=== PATIENT | male | born 1980 | race Caucasian/White ===

== ENCOUNTER 2018-03-10 16:39 | Emergency (ER) | payer OTHER ==
[~2018-03-10] VITALS: Ht 180.3 cm; Wt 122.5 kg
[2018-03-10 17:00] VITALS: BP 151/98
[2018-03-10] MEDS ORDERED: DIPHTH,PERTUSS(ACELL),TET TOX 0.5 ML DISP.SYRIN. VAX IM ONE (17:00)
[2018-03-10] MEDS ORDERED: HYDR-971 PO (17:03)
[2018-03-10] MEDS ORDERED: MUPI15CR TP (17:03)
--- NOTE | 2018-03-10 17:03 | PHYS DOC ---
Adult General Chief Complaint Chief Complaint: BURN/SMOKE INHALATION HPI HPI Patient is a 37 year old male who presents with complaint of of zimmerman to the head and shoulders. Patient states that he was working with a hot water line when it suddenly ruptured open. The patient received steam zimmerman to the scalp, face, shoulders, and chest. This took place shortly prior to arrival. Patient started treatment with wet towels. Patient denies any loss of vision or difficulty breathing. Patient states that his tetanus immunization is not up-to- date. Patient rates pain as 8 out of 10 currently. Review of Systems Review of Systems Constitutional: Denies fever or chills [] Eyes: Denies change in visual acuity, redness, or eye pain [] HENT: Denies nasal congestion or sore throat [] Respiratory: Denies cough or shortness of breath [] Cardiovascular: Denies chest pain or edema[] GI: Denies abdominal pain, nausea, vomiting, bloody stools or diarrhea [] : Denies dysuria or hematuria [] Musculoskeletal: Denies back pain or joint pain [] Integument: Zimmerman to scalp, chest, and shoulders[] Neurologic: Denies headache, focal weakness or sensory changes [] All other systems were reviewed and found to be within normal limits, except as documented in this note. Allergies Allergies Allergies Coded Allergies Type Severity Reaction Last Updated Verified No Known Drug Allergies 03/10/18 No Physical Exam Physical Exam Constitutional: Alert, afebrile, appears in moderate discomfort. [] HENT: Normocephalic, atraumatic, bilateral external ears normal, oropharynx moist, no oral exudates, nose normal. [] Eyes: PERRLA, EOMI, conjunctiva normal, no discharge. [] Neck: Normal range of motion, no tenderness, supple, no stridor. [] Cardiovascular:Heart rate regular rhythm, no murmur [] Lungs & Thorax: Bilateral breath sounds clear to auscultation [] Abdomen: Bowel sounds normal, soft, no tenderness, no masses, no pulsatile masses. [] Skin: Total body surface area burned is 9%,4% of zimmerman are partial-thickness zimmerman located across right anterior chest, neck, and right posterior scalp, remaining 5% are first-degree zimmerman involving the scalp, left shoulder and chest. [] Back: No tenderness, no CVA tenderness. [] Extremities: No tenderness, no cyanosis, no clubbing, ROM intact, no edema. [] Neurologic: Alert and oriented X 3, normal motor function, normal sensory function, no focal deficits noted. [] Current Patient Data Vital Signs Vital Signs Date Time Temp Pulse Resp B/P (MAP) Pulse Ox O2 Delivery O2 Flow Rate FiO2 03/10/18 16:56 98.1 123 24 99 Room Air Lab Results Not performed EKG EKG Not performed[] Radiology/Procedures Radiology/Procedures Not performed[] Course & Med Decision Making Course & Med Decision Making Pertinent Labs and Imaging studies reviewed. (See chart for details) The patient's zimmerman were treated with bacitracin ointment and dressed with clean bandages. Patient given tetanus booster in the emergency department. Patient prescribed Bactroban ointment and [place] for continued outpatient treatment. Advised follow-up with primary doctor in 3 days for reevaluation and return to emergency department for any worsening symptoms. Patient was understanding and agreement with treatment plan. Dragon Disclaimer Dragon Disclaimer This electronic medical record was generated, in whole or in part, using a voice recognition dictation system. Departure Departure: Impression: Primary Impression: Partial thickness zimmerman of multiple sites Disposition: HOME, SELF-CARE Condition: IMPROVED Referrals: MARIMAR VIRK Patient Instructions: Burn Care, Second-Degree Burn Additional Instructions: Follow-up with your primary doctor in 3 days for reevaluation. Return to the emergency department for any worsening symptoms. Scripts Mupirocin Calcium (BACTROBAN) 15 Gm Cream..g. 1 JOSE TP BID, #30 GM Prov: NICANOR MARTINEZ MD 03/10/18 Hydrocodone Bit/Acetaminophen (NORCO 5-325 TABLET) 1 Each Tablet 1-2 TAB PO Q4-6HRS PRN for PAIN, #30 TAB Prov: NICANOR MARTINEZ MD 03/10/18 NICANOR MARTINEZ MD Mar 10, 2018 17:03
[2018-03-10] MEDS ORDERED: BACITRACIN TOPICAL OINT 28GM TUBE. TP ONE (17:15)
[2018-03-10] MEDS ORDERED: BACITRACIN ZINC TOPICAL OINT PACKET. TP ONE (17:15)
[2018-03-10] MEDS ORDERED: silver sulfADIAZINE 1% CREAM 50GM JAR. TP ONE (18:01)
== END 2018-03-10 18:10 | disposition home or self-care (01) ==
LOC: ER 16:39
DX: T21.21XA Burn of second degree of chest wall, initial encounter (principal); T20.27XA Burn of second degree of neck, initial encounter; T20.25XA Burn of second degree of scalp [any part], initial encounter; T22.152A Burn of first degree of left shoulder, initial encounter; T31.0 Burns involving less than 10% of body surface; X11.8XXA Contact with other hot tap-water, initial encounter; Y93.89 Activity, other specified; Y92.89 Other specified places as the place of occurrence of the external cause; Y99.0 Civilian activity done for income or pay
CPT/HCPCS: 16025; 90471; 90715; 99284-25

== ENCOUNTER 2020-07-09 10:50 | Emergency (ER) | payer BC, OTHER ==
[~2020-07-09] VITALS: Ht 180.3 cm; Wt 130.0 kg
[~2020-07-09 10:50] MED LIST: HYDR-3165 PO; MUPI15CR TP
[2020-07-09 10:53] VITALS: BP 151/98
--- NOTE | 2020-07-09 11:28 | PHYS DOC ---
Past History Past Medical History: No Pertinent History Past Surgical History: Other Alcohol Use: None Drug Use: None General Adult EDM: Chief Complaint: Palpitations HPI: HPI: 40-year-old male who denies any significant past medical history presents the ED with complaints of sharp, nonradiating brief, left sided chest pain (lasted 1-2 seconds) with associated warmth/flushing feeling while sitting at work in a zoom conference call. Patient reports he looked at his apple watch and his heart rate went from 70-80 to 100-120 bpm-he asked his coworker if he looked well and she said yes. Pt reports around 7:30am he ingested 4 scoops of a creatinine pre- workout that contains caffeine 135mg per scoop (recommended dosing is 1 scoop). Patient denies any history of cocaine, methamphetamine abuse or [id number] Sudafed use. Has history of lap band surgery, hernia repair and hydrocele. States he took a preworkout medication because he likes how it "makes him fell, it keeps me awake." Does not routinely exercise. No personal history of any cardiac disease. No family history of sudden cardiac under the age of 50, connective tissue disorders, aortic disease, clotting disorders, cardiac arrhythmia or cardiac ischemia. Patient reports symptoms were very brief but his coworkers encouraged him to come to the ED to be evaluated when they heard his sxs. Pt states "I feel stupid like I shouldn't be here," because his sxs were brief and quickly resolved. Review of Systems: Review of Systems: Constitutional: Denies fever or chills Eyes: Denies change in visual acuity HENT: Denies nasal congestion or sore throat Respiratory: Denies cough or shortness of breath Cardiovascular: Denies syncope or edema GI: Denies abdominal pain, nausea, vomiting, bloody stools or diarrhea : Denies dysuria Musculoskeletal: Denies back pain or joint pain Integument: Denies rash Neurologic: Denies headache, focal weakness or sensory changes Endocrine: Denies polyuria or polydipsia Lymphatic: Denies swollen glands Psychiatric: Denies depression or anxiety Allergies: Allergies: Allergies Coded Allergies Type Severity Reaction Last Updated Verified No Known Drug Allergies 03/10/18 No Physical Exam: PE: Constitutional: Well developed, well nourished, no acute distress, non-toxic appearance. HENT: Normocephalic, atraumatic, Eyes: EOMI, conjunctiva normal, no discharge. Neck: Normal range of motion, supple, Cardiovascular: S1/2 present, regular rhythm, no murmur Lungs & Thorax: Speaking in full sentences, bilateral equal chest rise, no tachypnea or increased work of breathing Abdomen: soft, no tenderness, Skin: Warm, dry, no erythema, no rash. [] Back: No tenderness, no CVA tenderness. [] Extremities: No tenderness, no cyanosis, no edema, equal radial pulses Neurologic: Alert and oriented X 3, normal motor function, normal sensory function, no focal deficits noted. [] Psychologic: Affect normal, judgement normal, mood normal-calm/no anxiety EKG: EKG: Sinus rhythm at 71 bpm, left axis deviation, normal intervals, no T wave inversions, no ST elevations or ST depressions Radiology/Procedures: Radiology/Procedures: IMAGING REPORT Signed PATIENT: DORIAN MCKOY ACCOUNT: [id number] : 1980 LOCATION: ER AGE: 40 SEX: M EXAM STATUS: DEP ER ORD. PHYSICIAN: LATASHA HOLLIS DO REASON: cp PROCEDURE: CHEST AP ONLY CHEST AP ONLY 07/09/2020 11:30 AM INDICATION: Chest pain COMPARISON: None available TECHNIQUE: Portable frontal view of the chest is provided. FINDINGS: The cardiomediastinal silhouette is within normal limits. Nodular prominence of the left hilar region may reflect lymphadenopathy versus prominent hilar vasculature. There is left basilar subsegmental atelectasis. There are no significant pleural effusions. There is no pulmonary vascular congestion. No pneumothorax. No suspicious osseous abnormality. IMPRESSION: 1. Nodular prominence of the left hilar region may reflect lymphadenopathy versus prominent hilar vasculature. Further characterization with CT chest could be of benefit. 2. There is left basilar subsegmental atelectasis. No focal airspace consolidation. Electronically signed by: Viola Herman MD (07/09/2020 2:29 PM) [facility] DICTATED AND SIGNED BY: VIOLA HERMAN MD DATE: 07/09/20 1429 CC: MARIMAR VIRK; VOHS,LATASHA M DO ~MTH0 0 Impressions: 0 criteria No need for further workup, as <2% chance of PE. If no criteria are positive and clinicians pre-test probability is <15%, PERC Rule criteria are satisfied. Patient IS in the low-risk group for serious outcome per [place] syncope rule Heart Score: HEART Score for Chest Pain: HEART Score for Chest Pain Response (Comments) Value History Slighlty/Non-Suspicious 0 ECG Normal 0 Age < 45 0 Risk Factors No Risk Factors 0 Troponin < Normal Limit 0 Total 0 Risk Factors: Risk Factors: DM, Current or recent (<one month) smoker, HTN, HLP, family history of CAD, obesity. Risk Scores: Score 0 - 3: 2.5% MACE over next 6 weeks - Discharge Home Score 4 - 6: 20.3% MACE over next 6 weeks - Admit for Clinical Observation Score 7 - 10: 72.7% MACE over next 6 weeks - Early Invasive Strategies Course & Med Decision Making: Course & Med Decision Making Pertinent Labs and Imaging studies reviewed. (See chart for details) Concern for brief episode of chest pain (lasted 1-2 seconds) following by flushing/warmth and tachycardia -likely caffeine adverse effect. Very atypical, low risk for mace, sxs not consistent with cardiac chest pain vs pe vs syncope vs dissection. Pt asymptomatic during entire ed presentation, also with mild asymptomatic htn. CXR with LAD vs prominent hilar vasculature, mediastinum in normal range. Strict ED return precautions were given for typical chest pain (was educated that negative troponin drawn too soon cannot exclude ischemia/i nfection and understands to return to ed immediately if chest/back pain should return). Encouraged urgent outpatient follow-up with PMD and cardiology. Life- threatening processes were considered but are low suspicion at this time, given history and physical exam. Pt was educated on all prescription medications and adverse effects. All patient's questions were answered and pt was stable at time of discharge. Life/limb-threatening differential includes but is not limited to, acute myocardial infarction, aortic dissection, congestive heart failure, esophageal injury including rupture, surgical abdomen, arrhythmia, cardiomyopathy, my ocarditis, pericarditis, peptic ulcer disease, pneumomediastinum, pneumonia, pneumothorax, pulmonary embolus, unstable angina, rib fracture, contusion, pericardial tamponade or effusion, pulmonary contusion I spoken with the patient and her caregivers. I explained the patient's condition, diagnoses and treatment plan based on the information available to me at this time. I have answered the patient and her caregiver's questions and addressed any concerns. The patient and her caregivers have a good under standing of patient's diagnosis, condition and treatment plan as can be expected at this point. Vital signs have been stable. Patient's condition is stable and appropriate for discharge from the emergency department. Patient will pursue further outpatient evaluation with primary care physician or other designated or consulting physician as outlined in the discharge instructions. The patient and/or caregivers are agreeable to this plan of care and follow-up instructions have been explained in detail. The patient and/or caregivers have received these instructions in written form and have expressed an understanding of the discharge instructions. The patient and/or caregivers are aware that any significant change of condition or worsening of symptoms shou ld prompt immediate return to this or the closest emergency department or call to [id number] Disclaimer: Gray Disclaimer: This electronic medical record was generated, in whole or in part, using a voice recognition dictation system. Departure Departure: Impression: Primary Impression: Chest pain Additional Impressions: Adverse drug effect Adverse effect of caffeine Disposition: 01 DC HOME SELF CARE/HOMELESS Condition: STABLE Referrals: MARIMAR VIRK (PCP) in 7-10 days for re-evaluation Patient Instructions: Chest Pain (Nonspecific), Drug Toxicity Additional Instructions: FOLLOW UP WITH CARDIOLOGY: [facility] [address] [id number] [place] [facility] [address] [address] EMERGENCY DEPARTMENT GENERAL DISCHARGE INSTRUCTIONS Thank you for coming to [facility] (ED) today and trusting us with you care. We trust that you had a positivie experience in our Emergency Department. If you wish to speak to the department management, you may call the director at [phone]. YOUR FOLLOW UP INSTRUCTIONS ARE FOLLOWS: 1. Do you have a private Doctor? If you do not have a private doctor, please ask for a resource list of physicians or clinics that may be able to assist you with follow up care. 2. The Emergency Physician has interpreted your x-rays. The X-Ray specialist will also review them. If there is a change in the findings, you will be notified in 48 hours when at all possible. 3. A lab test or culture has been done, your results will be reviewed and you will be notified if you need a change in treatment. ADDITIONAL INSTRUCTIONS AND INFORMATION: 1. Your care today has been supervised by a physician who is specially trained in emergency care. Many problems require more than one evaluation for a complete diagnosis and treatment. We recommend that you schedule your follow up appointment as recommended to ensure complete treatment of you illness or injury. If you are unable to obtain follow up care and continue to have a problem, or if your condition worsens, we recommend that you return to the ED. 2. We are not able to safely determine your condition over the phone nor are we able to give sound medical advice over the phone. For these safety reasons, if you call for medical advice we will ask you to come to the ED for further evaluation. 3. If you have any questions regarding these discharge instructions please call the ED at [phone]. SAFETY INFORMATION: In the interest of safety, wellness, and injury prevention; we encourage you to wear your sealbelt, if you smoke; quite smoking, and we encourage family to use a protective helmet for bicycling and other sporting events that present an increased risk for head injury. IF YOUR SYMPTOMS WORSEN OR NEW SYMPTOMS DEVELOP, OR YOU HAVE CONCERNS ABOUT YOUR CONDITION; OR IF YOUR CONDITION WORSENS WHILE YOU ARE WAITING FOR YOUR FOLLOW UP APPOINTMENT; EITHER CONTACT YOUR PRIMARY CARE DOCTOR, THE PHYSICIAN WHOSE NAME AND NUMBER YOU WERE GIVEN, OR RETURN TO THE ED IMMEDIATELY. LATASHA MG DO Jul 09, 2020 11:28
[2020-07-09 11:44] LABS: BASO % 1 % (0-3); EOS # 0.1 x10^3/uL (0.0-0.7); EOS % 3 % (0-3); HEMATOCRIT 44.9 % (39.0-53.0); HEMOGLOBIN 15.3 g/dL (13.0-17.5); LYMPH # 1.6 x10^3/uL (1.0-4.8); LYMPH % 35 % (24-48); MEAN CORPUSCULAR HEMOGLOBIN 31 pg (25-35); MEAN CORPUSCULAR HGB CONC 34 g/dL (31-37); MEAN CORPUSCULAR VOLUME 91 fL (79-100); MONO # 0.4 x10^3/uL (0.0-1.1); MONO % 8 % (0-9); NEUT # 2.4 x10^3uL (1.8-7.7); NEUT % 53 % (31-73); PLATELET COUNT 197 x10^3/uL (140-400); RED BLOOD COUNT 4.96 x10^6/uL (4.30-5.70); WHITE BLOOD COUNT 4.6 x10^3/uL (4.0-11.0)
[2020-07-09 11:55] LABS: CALCIUM 9.8 mg/dL (8.5-10.1); CREATININE 1.3 mg/dL (0.7-1.3); GFR 60.5; MAGNESIUM 2.1 mg/dL (1.8-2.4); POTASSIUM 3.6 mmol/L (3.5-5.1)
--- NOTE | 2020-07-09 13:27 | EKG ---
[address] [address] Test Date: 2020-07-09 Test Time: 11:15:54 Pat Name: DORIAN MCKOY Department: Room: Gender: M Security Dispatcher: ANTONIETTA : 1980 Requested By: LATASHA HOLLIS Order Number: [id number] Reading MD: Measurements Intervals [place] Rate: 71 P: 57 VA: 198 QRS: -8 QRSD: 112 T: 26 QT: 374 QTc: 407 Interpretive Statements SINUS RHYTHM LEFTWARD AXIS NO SPECIFIC ECG ABNORMALITIES RI6.02 No previous ECG available for comparison
--- NOTE | 2020-07-09 14:32 | RAD ---
CHEST AP ONLY 07/09/2020 11:30 AM INDICATION: Chest pain COMPARISON: None available TECHNIQUE: Portable frontal view of the chest is provided. FINDINGS: The cardiomediastinal silhouette is within normal limits. Nodular prominence of the left hilar region may reflect lymphadenopathy versus prominent hilar vasculature. There is left basilar subsegmental atelectasis. There are no significant pleural effusions. There is no pulmonary vascular congestion. No pneumothorax. No suspicious osseous abnormality. IMPRESSION: 1. Nodular prominence of the left hilar region may reflect lymphadenopathy versus prominent hilar vasculature. Further characterization with CT chest could be of benefit. 2. There is left basilar subsegmental atelectasis. No focal airspace consolidation. Electronically signed by: Lidia Lucero MD (07/09/2020 2:29 PM) [facility]
== END 2020-07-09 13:07 | disposition home or self-care (01) ==
LOC: ER 10:50
DX: R07.89 Other chest pain (principal); T43.615A Adverse effect of caffeine, initial encounter; Y92.89 Other specified places as the place of occurrence of the external cause
CPT/HCPCS: 36415; 71045; 80048; 83735; 84484; 85025; 93005; 99285-25